=== PATIENT | male | born 1995 | race Caucasian/White ===

== ENCOUNTER 2019-11-09 04:41 | Emergency (ER) | payer SELFPAY ==
[2019-11-09 04:50] VITALS: BP 133/99; PULSE 110; RESP 22; TEMP 37.3; O2SAT 100; BMI 25.8
--- NOTE | 2019-11-09 05:07 | ED.ANXIETY ---
HPI - Anxiety <Sarahy Peres DO - Last Filed: 11/10/19 00:45> General Chief Complaint: Anxiety Stated Complaint: PTSD Time Seen by Provider: 11/09/19 04:48 Source: patient and EMS Mode of arrival: EMS Limitations: no limitations History of Present Illness HPI narrative: This is a 24-year-old male comes to the emergency department with complaint muscle spasms. Patient states he feels like he is having strokes. He told EMS that he thinks he is having 6-8 strokes daily. Patient states that it just started today. States he feels tingly on his face, he does not have tingling elsewhere in his body. He does not have any weakness, no numbness. He states he has a history of muscle spasms. He states he used to take medication for muscle spasms they does not remember wanted it. Has a history of depression, anxiety and bipolar. He no longer takes his medications. He states he feels a little depressed but denies any suicidal ideation, intent or homicidal ideation. He is not having any hallucinations. He denies any headache, he states his vision felt weird earlier. He has not had any difficulty with speech. No active chest pain or shortness of breath. No nausea or vomiting. No other GI or urinary symptoms. Patient states that he did use methamphetamines within the last 2 days. He denies other illicit. He does smoke tobacco and occasionally uses alcohol. States he had 2 alcoholic drinks earlier this evening. He was also concerned he heard some noises and saw some things in his hotel that made him concerned but he states that the noises could have been from a movie and he is not sure if the freeman mean anything. A friend recently told him he needs to leave the [place] or get out of the state and he states that that was upsetting to here. He denies anyone is trying to harm him. Review of Systems <Sarahy Peres DO - Last Filed: 11/10/19 00:45> Review of Systems ROS Unobtainable: All systems reviewed & are unremarkable except as noted in HPI and below Patient History <Sarahy Peres DO - Last Filed: 11/10/19 00:45> Social History Smoking Status: Current every day smoker Smoking Status: Current every day smoker tobacco type: cigarettes alcohol intake frequency: 0-2 drinks per day Exam <Sarahy Peres DO - Last Filed: 11/10/19 00:45> Narrative Exam Narrative: GEN: well nourished, well appearing male, alert and oriented x 3, patient appears to be in mild distress. HEENT: Atraumatic, pupils are equal round reactive to light, extraocular movements are intact, nares are clear, TMs are clear with no fluid, there is no conjunctival pallor. Throat is clear without any exudates, erythema, tonsillar enlargement or uvular deviation, no facial droop. No dysarthria. HEART: Regular rate and rhythm without murmur, clicks, rubs. Pulses are equal in upper and lower extremities LUNGS:Lungs clear to auscultation, no wheezes, rales, crackles, chest moves symmetrically ABD:bowel sounds normal, soft, non-tender, no guarding, rebound, rigidity, no masses noted, no hepatosplenomegaly :No CVA tenderness MSCL: Non-tender, no muscle atrophy, muscles strength 5/5 upper and lower extremities, full range of motion, normal gait NEURO:CN 2-12 intact, sensation normal, reflexes 2/4 upper and lower extremities. finger nose finger test normal, heel melendez test normal. SKIN: No rash, no erythema or petechiae. Initial Vital Signs Initial Vital Signs: Vital Signs Temperature 99.2 F 11/09/19 04:50 Pulse Rate 110 H 11/09/19 04:50 Respiratory Rate 22 11/09/19 04:50 Blood Pressure 133/99 H 11/09/19 04:50 Pulse Oximetry 100 11/09/19 04:50 <Ginger William DO - Last Filed: 11/09/19 08:05> Initial Vital Signs Initial Vital Signs: Vital Signs Temperature 99.2 F 11/09/19 04:50 Pulse Rate 110 H 11/09/19 04:50 Respiratory Rate 22 11/09/19 04:50 Blood Pressure 133/99 H 11/09/19 04:50 Pulse Oximetry 100 11/09/19 04:50 Scores <Sarahy Peres DO - Last Filed: 11/10/19 00:45> NIH Stroke Scale Level of Conciousness: Alert, keenly responsive Ask month/age: Answers both questions correctly. Open/close eyes, close hand: Performs both tasks correctly Best gaze horizontal: Normal Visual palmer: No visual loss Facial palsy: Normal symetrical movement Left arm drift: No drift for full 10 sec Right arm drift: No drift for full 10 sec Left leg drift: No drift for full 10 sec Right leg drift: No drift for full 10 sec Limb ataxia: Absent Sensory on face/arms/legs: Normal, no sensory loss Best language: No aphasia, normal Dysarthria: Normal Extinction or inattention: No abnormality Total NIH Stroke scale score: 0 Course <Sarahy Peres DO - Last Filed: 11/10/19 00:45> Orders Ordered: ED Orders 11/09/19 05:13 Basic Metabolic Panel Stat Complete Blood Count AUTO DIFF Stat Ethanol (ETOH) Stat Thyroid Stimulating Hormone Stat Troponin & CK Cardiac Panel Stat 11/09/19 06:33 Urine Drug Screen, Rapid Stat 11/09/19 06:37 EKG-12 Lead Stat Vital Signs Vital signs: Vital Signs - 8 hr 11/09/19 04:50 11/09/19 06:27 Temperature 99.2 F Pulse Rate 110 H 94 H Respiratory Rate 22 Blood Pressure 133/99 H Blood Pressure [Right Arm] 133/94 H Pulse Oximetry 100 98 <Ginger William DO - Last Filed: 11/09/19 08:05> Orders Ordered: ED Orders 11/09/19 05:13 Basic Metabolic Panel Stat Complete Blood Count AUTO DIFF Stat Ethanol (ETOH) Stat Thyroid Stimulating Hormone Stat Troponin & CK Cardiac Panel Stat 11/09/19 06:33 Urine Drug Screen, Rapid Stat 11/09/19 06:37 EKG-12 Lead Stat Vital Signs Vital signs: Vital Signs - 8 hr 11/09/19 04:50 11/09/19 06:27 Temperature 99.2 F Pulse Rate 110 H 94 H Respiratory Rate 22 Blood Pressure 133/99 H Blood Pressure [Right Arm] 133/94 H Pulse Oximetry 100 98 MDM - Anxiety <Sarahy Peres DO - Last Filed: 11/10/19 00:45> Lab Data Attestation: I reviewed the patient's lab results. Result diagrams: 11/09/19 05:13 11/09/19 05:13 Labs: Lab Results 11/09/19 11/09/19 11/09/19 Range/Units 05:13 05:13 05:13 WBC 8.3 (4.5-11.0) X10^3/uL RBC 4.96 (4.5-5.9) X10^6/uL Hgb 14.9 (13.5-17.5) g/dL Hct 43.7 (41-53) % MCV 88.0 (80-100) fL MCH 30.0 (26-34) PG MCHC 34.1 (30-36) % RDW 13.2 (11.6-14.8) % Plt Count 261 (150-400) X10^3/uL Neut % (Auto) 67.5 (50-75) % Lymph % (Auto) 23.8 L (25-40) % [place] % (Auto) 7.0 (3-14) % Eos % (Auto) 0.8 L (2-4) % Baso % (Auto) 0.9 (0-2) % Neut # (Auto) 5600 (6613-9917) /uL Lymph # (Auto) 2000 (4065-1895) /uL [place] # (Auto) 600 (0-900) /uL Eos # (Auto) 100 (0-450) /uL Baso # (Auto) 100 (0-100) /uL Sodium 138 (137-145) mmol/L Potassium 3.8 (3.4-5.1) mmol/L Chloride 100 (98-107) mmol/L Carbon Dioxide 25 (22-32) mmol/L BUN 12 (9-20) mg/dL Creatinine 0.60 L (0.66-1.25) mg/dL Estimated GFR > 60.0 (>60) mL/min BUN/Creatinine Ratio 20.0 (6-22) Glucose 95 (70-100) mg/dL Calcium 10.1 (8.4-10.2) mg/dL Total Creatine Kinase (55-170) U/L CK-MB (CK-2) (<2.37) ng/mL CK-MB (CK-2) Rel Index (1.5-5.0) % Troponin I (0.01-0.034) ng/mL TSH 1.57 (0.47-4.68) uIU/mL U Opiates 300ng/mL cut (Negative) Ur Oxycodone Screen (Negative) Urine Methadone Screen (Negative) Ur Barbiturates Screen (Negative) U Tricyclic Antidepress (Negative) Ur Phencyclidine Scrn (Negative) Ur Amphetamines Screen (Negative) U Methamphetamines Scrn (Negative) Ur MDMA Scrn (Ecstasy) (Negative) U Benzodiazepines Scrn (Negative) Urine Cocaine Screen (Negative) U Marijuana (THC) Screen (Negative) Ethyl Alcohol ( - 10) mg/dL 11/09/19 11/09/19 11/09/19 Range/Units 05:13 05:13 06:33 WBC (4.5-11.0) X10^3/uL RBC (4.5-5.9) X10^6/uL Hgb (13.5-17.5) g/dL Hct (41-53) % MCV (80-100) fL MCH (26-34) PG MCHC (30-36) % RDW (11.6-14.8) % Plt Count (150-400) X10^3/uL Neut % (Auto) (50-75) % Lymph % (Auto) (25-40) % [place] % (Auto) (3-14) % Eos % (Auto) (2-4) % Baso % (Auto) (0-2) % Neut # (Auto) (2432-6955) /uL Lymph # (Auto) (2211-5569) /uL [place] # (Auto) (0-900) /uL Eos # (Auto) (0-450) /uL Baso # (Auto) (0-100) /uL Sodium (137-145) mmol/L Potassium (3.4-5.1) mmol/L Chloride (98-107) mmol/L Carbon Dioxide (22-32) mmol/L BUN (9-20) mg/dL Creatinine (0.66-1.25) mg/dL Estimated GFR (>60) mL/min BUN/Creatinine Ratio (6-22) Glucose (70-100) mg/dL Calcium (8.4-10.2) mg/dL Total Creatine Kinase 202 H (55-170) U/L CK-MB (CK-2) 0.95 (<2.37) ng/mL CK-MB (CK-2) Rel Index 0.5 L (1.5-5.0) % Troponin I < 0.012 (0.01-0.034) ng/mL TSH (0.47-4.68) uIU/mL U Opiates 300ng/mL cut Negative (Negative) Ur Oxycodone Screen Negative (Negative) Urine Methadone Screen Negative (Negative) Ur Barbiturates Screen Negative (Negative) U Tricyclic Antidepress Negative (Negative) Ur Phencyclidine Scrn Negative (Negative) Ur Amphetamines Screen Positive H (Negative) U Methamphetamines Scrn Positive H (Negative) Ur MDMA Scrn (Ecstasy) Negative (Negative) U Benzodiazepines Scrn Negative (Negative) Urine Cocaine Screen Negative (Negative) U Marijuana (THC) Screen Negative (Negative) Ethyl Alcohol < 10 ( - 10) mg/dL ECG Data Attestation: I personally reviewed and interpreted this ECG as follows: Interpretation: Sinus rhythm with sinus arrhythmia rate 82 TX 154 QRS 84 and QTC of 406. No prior EKG available. MDM Narrative Medical decision making narrative: Patient comes in with complaint of spasms which he described EMS is strokes but when we have further discussion he describes the more muscle spasms to me and some tingling in his face. Patient's heart rate is elevated for EMS is still slightly elevated for us here. He is alert, appropriate cooperative he has had recent methamphetamine use which could be a factor in his symptoms at this point. His neuro exam is normal. We did check CBC and BMP which showed no major changes, TSH is negative. Patient signed out to Dr. William, pending troponin. Patient does have mental health issues and has had some depression but is not seeking care at this time and does not meet involuntary criteria. <Ginger William, DO - Last Filed: 11/09/19 08:05> Lab Data Attestation: I reviewed the patient's lab results. Labs: Lab Results 11/09/19 11/09/19 11/09/19 Range/Units 05:13 05:13 05:13 WBC 8.3 (4.5-11.0) X10^3/uL RBC 4.96 (4.5-5.9) X10^6/uL Hgb 14.9 (13.5-17.5) g/dL Hct 43.7 (41-53) % MCV 88.0 (80-100) fL MCH 30.0 (26-34) PG MCHC 34.1 (30-36) % RDW 13.2 (11.6-14.8) % Plt Count 261 (150-400) X10^3/uL Neut % (Auto) 67.5 (50-75) % Lymph % (Auto) 23.8 L (25-40) % [place] % (Auto) 7.0 (3-14) % Eos % (Auto) 0.8 L (2-4) % Baso % (Auto) 0.9 (0-2) % Neut # (Auto) 5600 (5416-5405) /uL Lymph # (Auto) 2000 (1604-2738) /uL [place] # (Auto) 600 (0-900) /uL Eos # (Auto) 100 (0-450) /uL Baso # (Auto) 100 (0-100) /uL Sodium 138 (137-145) mmol/L Potassium 3.8 (3.4-5.1) mmol/L Chloride 100 (98-107) mmol/L Carbon Dioxide 25 (22-32) mmol/L BUN 12 (9-20) mg/dL Creatinine 0.60 L (0.66-1.25) mg/dL Estimated GFR > 60.0 (>60) mL/min BUN/Creatinine Ratio 20.0 (6-22) Glucose 95 (70-100) mg/dL Calcium 10.1 (8.4-10.2) mg/dL Total Creatine Kinase (55-170) U/L CK-MB (CK-2) (<2.37) ng/mL CK-MB (CK-2) Rel Index (1.5-5.0) % Troponin I (0.01-0.034) ng/mL TSH 1.57 (0.47-4.68) uIU/mL U Opiates 300ng/mL cut (Negative) Ur Oxycodone Screen (Negative) Urine Methadone Screen (Negative) Ur Barbiturates Screen (Negative) U Tricyclic Antidepress (Negative) Ur Phencyclidine Scrn (Negative) Ur Amphetamines Screen (Negative) U Methamphetamines Scrn (Negative) Ur MDMA Scrn (Ecstasy) (Negative) U Benzodiazepines Scrn (Negative) Urine Cocaine Screen (Negative) U Marijuana (THC) Screen (Negative) Ethyl Alcohol ( - 10) mg/dL 01/31/20 01/31/20 01/31/20 Range/Units 05:13 05:13 06:33 WBC (4.5-11.0) X10^3/uL RBC (4.5-5.9) X10^6/uL Hgb (13.5-17.5) g/dL Hct (41-53) % MCV (80-100) fL MCH (26-34) PG MCHC (30-36) % RDW (11.6-14.8) % Plt Count (150-400) X10^3/uL Neut % (Auto) (50-75) % Lymph % (Auto) (25-40) % [place] % (Auto) (3-14) % Eos % (Auto) (2-4) % Baso % (Auto) (0-2) % Neut # (Auto) (6953-6934) /uL Lymph # (Auto) (9126-1188) /uL [place] # (Auto) (0-900) /uL Eos # (Auto) (0-450) /uL Baso # (Auto) (0-100) /uL Sodium (137-145) mmol/L Potassium (3.4-5.1) mmol/L Chloride (98-107) mmol/L Carbon Dioxide (22-32) mmol/L BUN (9-20) mg/dL Creatinine (0.66-1.25) mg/dL Estimated GFR (>60) mL/min BUN/Creatinine Ratio (6-22) Glucose (70-100) mg/dL Calcium (8.4-10.2) mg/dL Total Creatine Kinase 202 H (55-170) U/L CK-MB (CK-2) 0.95 (<2.37) ng/mL CK-MB (CK-2) Rel Index 0.5 L (1.5-5.0) % Troponin I < 0.012 (0.01-0.034) ng/mL TSH (0.47-4.68) uIU/mL U Opiates 300ng/mL cut Negative (Negative) Ur Oxycodone Screen Negative (Negative) Urine Methadone Screen Negative (Negative) Ur Barbiturates Screen Negative (Negative) U Tricyclic Antidepress Negative (Negative) Ur Phencyclidine Scrn Negative (Negative) Ur Amphetamines Screen Positive H (Negative) U Methamphetamines Scrn Positive H (Negative) Ur MDMA Scrn (Ecstasy) Negative (Negative) U Benzodiazepines Scrn Negative (Negative) Urine Cocaine Screen Negative (Negative) U Marijuana (THC) Screen Negative (Negative) Ethyl Alcohol < 10 ( - 10) mg/dL ECG Data Attestation: I personally reviewed and interpreted this ECG as follows: Interpretation: EKG 2. Normal sinus rhythm benign early positional repolarization noted similar to previous EKG no changes MDM Narrative Medical decision making narrative: Patient signed out to me by Dr. Peres of seen and evaluated patient myself. At this time troponin is negative EKG appears the same. Patient is tearful and upset at this time. He denies any suicidal ideations or homicidal ideations. Upset that he may be going to [facility]. He does not meet any involuntary criteria. Discharge Plan Departure Patient Disposition: Home Clinical Impression: Muscle spasm Discharge Date/Time: 11/09/19 08:14 Instructions: DI for Anxiety -- Adult Activity Restrictions/Additional Instructions: Follow-up with primary care for recheck in the next several days. If you do not have a primary care physician to follow up with you may call [phone] to establish with a primary care provider. I would recommend discussion restarting medications for your depression and bipolar if you are having symptoms. I would recommend avoiding methamphetamines. Return to ER for fevers greater 100.4 F, sudden severe headaches, new vision changes, difficulty with speech, new weakness numbness or loss of sensation, new chest pain or shortness of breath, persistent vomiting, new rashes or other new or concerning symptoms.
[2019-11-09 05:30] LABS: Add Manual Diff / Slide Review NO; Basophils Absolute Auto 100 /uL (0-100); Basophils Percent Auto 0.9 % (0-2); Eosinophils Absolute Auto 100 /uL (0-450); Eosinophils Percent Auto 0.8 % (2-4); Hematocrit 43.7 % (41-53); Hemoglobin 14.9 g/dL (13.5-17.5); Lymphocytes Absolute Auto 2000 /uL (1100-4500); Lymphocytes Percent Auto 23.8 % (25-40); Mean Corpuscular HGB Conc 34.1 % (30-36); Monocytes Absolute Auto 600 /uL (0-900); Neutrophils Absolute Auto 5600 /uL (1500-7000); Neutrophils Percent Auto 67.5 % (50-75); Platelet Count 261 X10^3/uL (150-400); Red Blood Cell Count 4.96 X10^6/uL (4.5-5.9); Red Cell Distribution Width 13.2 % (11.6-14.8); White Blood Cell Count 8.3 X10^3/uL (4.5-11.0)
[2019-11-09 05:34] LABS: Blood Urea Nitrogen 12 mg/dL (9-20); Calcium 10.1 mg/dL (8.4-10.2); Carbon Dioxide 25 mmol/L (22-32); Chloride 100 mmol/L (98-107); Estimated Glomerular Filt Rate > 60.0 mL/min (>60); Glucose 95 mg/dL (70-100); HEMOLYSIS 18 (0-50); Potassium 3.8 mmol/L (3.4-5.1); Sodium 138 mmol/L (137-145)
[2019-11-09 05:45] LABS: Ethanol (ETOH) < 10 mg/dL
[2019-11-09 06:18] LABS: Thyroid Stimulating Hormone 1.57 uIU/mL (0.47-4.68)
[2019-11-09 06:27] VITALS: BP 133/94; PULSE 94; O2SAT 98
[2019-11-09 06:52] LABS: UR Morphine/Opiate cutoff 300 Negative (Negative); Ur Creatinine 50 (Normal); Ur Specific Gravity 1.025 (Normal); Urine Amphetamines Positive (Negative); Urine Barbiturates Negative (Negative); Urine Benzodiazepines Negative (Negative); Urine Cocaine Negative (Negative); Urine MDMA Negative (Negative); Urine Methadone Negative (Negative); Urine Methamphetamines Positive (Negative); Urine Phencyclidine Negative (Negative); Urine Tetrahydrocannabinol Negative (Negative); Urine Tricyclic Antidepressant Negative (Negative); Urine pH 5 (Normal)
[2019-11-09 06:53] LABS: Urine Oxycodone Negative (Negative)
[2019-11-09 07:02] LABS: Creatine Kinase 202 U/L (55-170)
[2019-11-09 07:18] LABS: CKMB % Relative Index 0.5 % (1.5-5.0); Creatine Kinase MB 0.95 ng/mL (<2.37)
[2019-11-09 07:29] LABS: Troponin I < 0.012 ng/mL (0.01-0.034)
== END 2019-11-09 08:14 | disposition home or self-care (01) ==
PROVIDERS: Emergency Medicine; Emergency Provider Emergency Medicine
DX: M62.838 Other muscle spasm (principal); R07.9 Chest pain, unspecified; F43.10 Post-traumatic stress disorder, unspecified
CPT/HCPCS: 36415; 80048; 80305; 80320; 82550; 82553; 84443; 84484; 85025; 93005; 99283; 99284